=== PATIENT | female | born 1965 | race Caucasian/White ===

== ENCOUNTER 2023-02-01 05:55 | Day surgery (SDC) | payer BC ==
[~2023-02-01] VITALS: Ht 160 cm; Wt 65.9 kg
[~2023-02-01 05:55] MED LIST: LISINOPRIL10 MG PO
[2023-02-01] MEDS ORDERED: CHILDREN'S ASPI81 M1 PO (06:15)
--- NOTE | 2023-02-01 08:07 | NUR ---
02/01/23 0807 Laura Rushing 0803 PATIENT ARRIVES TO PACU AWAKE BUT DROWSY. REPOSTIONS SELF TO BACK. DENIES PAIN OR NAUSEA. RESP EVEN AND UNLABORED, ROOM AIR SATS >93%. DENIES NEEDS. PASSING GAS.
--- NOTE | 2023-02-01 11:01 | OR ---
[facility] [address], [place] [address] Signed DATE OF OPERATION: 02/01/2023 SURGEON: Dayne Willingham MD PREOPERATIVE DIAGNOSES: 1. Maternal grandfather with colon cancer. 2. Mother with colon cancer at age 60. 3. Personal history of hyperplastic colonic polyps at age 45 and age 50. 4. Minimal sigmoid diverticulosis. 5. Tortuous rectosigmoid junction and sigmoid colon. POSTOPERATIVE DIAGNOSES: 1. Minimal sigmoid diverticulosis. 2. Tortuous sigmoid colon and rectosigmoid junction. 3. A 5 mm sessile polyp at 55 cm in the left colon. 4. A 5 mm pedunculated polyp at 15 cm at the rectosigmoid junction. 5. A 3 mm polyp at 4 cm. 6. Minimal internal hemorrhoids. PROCEDURE: Colonoscopy with hot biopsy. ESTIMATED BLOOD LOSS: None. INDICATIONS: Dhara is a 57-year-old female, asked to see me for her third colonoscopy. We know her maternal grandfather had colon cancer. Her mother had colon cancer at age 60. Dhara came to us in 2010 at age of 45 and again in 2016 at age of 50. She has had multiple hyperplastic colonic polyps removed. She has minimal sigmoid diverticulosis. We know her rectosigmoid junction and the sigmoid colon are quite torturous. She took an enormous amount of Versed and fentanyl to complete her two colonoscopies. In fact, she took 12 mg of Versed and 250 mcg of fentanyl. It is very clear that she had pain and memory of the colonoscopy. We therefore asked that she undergo monitored anesthesia care with propofol infusion on this occasion that proved to be a tremendous improvement both for Dhara and for the technical advancement of the scope. In the office, I gave her a pamphlet on colonoscopy. We had reviewed the nature of the test. She understands there is risk including, but not limited to gas bloating, crampy abdominal pain, bleeding, perforation requiring surgery, and missed diagnosis. She had expressed understanding and wished to proceed. Electronically Signed By: DAYNE WILLINGHAM MD 02/01/23 1101 PATIENT NAME: DHARA JUAREZ OPERATIVE REPORT DATE OF : 65 REPORT #: [id number] PHYSICIAN: DAYNE WILLINGHAM MD PCP: DEBBY APONTE PA-C REPORT IS CONFIDENTIAL AND NOT TO BE RELEASED WITHOUT AUTHORIZATION [facility] [address] [place] [id number] Signed DESCRIPTION OF PROCEDURE: Dhara was taken into our endoscopy suite and placed in the left lateral decubitus position. She was given monitored anesthesia care with propofol infusion per our nurse margarine maker. A digital rectal exam was performed. This was unremarkable. There were no external hemorrhoids. She had good sphincter tone. There were no masses. The adult colonoscope was introduced and advanced under direct visualization of camera. We had to carefully navigate around the rectosigmoid junction and up through the sigmoid colon. It was a tremendous improvement with the help of the IV propofol. After that, the camera passed quite nicely up into the cecum itself. We did use some abdominal compression in order to advance the scope along with some additional propofol. As always, her prep was quite excellent. We could easily see the appendiceal orifice and the ileocecal valve. The scope was then slowly withdrawn. We took pictures throughout for photodocumentation. The above-mentioned polyps were easily removed with a hot biopsy forceps. We did see the diverticula in the sigmoid colon. They were moderate in size, few in number, and scattered about. Once in the rectum, the scope had been retroflexion. She has some very minimal internal hemorrhoid tissue. After this, the gas was suctioned out, colonoscope removed. Dhara tolerated the procedure much better on this occasion with the help of the propofol infusion. RECOMMENDATIONS: I will see Dhara back in my office in 7 to 14 days to review her results. I suspect she will be on the five year plan. She will always benefit from monitored anesthesia care with propofol infusion. Dayne Willingham MD ALB/MODL /[id number] cc: Dayne Willingham MD Patient Chart Debby Aponte PA-C Electronically Signed By: DAYNE WILLINGHAM MD 02/01/23 1101 PATIENT NAME: DHARA JUAREZ OPERATIVE REPORT DATE OF : 65 REPORT #: [id number] PHYSICIAN: DAYNE WILLINGHAM MD PCP: DEBBY APONTE PA-C REPORT IS CONFIDENTIAL AND NOT TO BE RELEASED WITHOUT AUTHORIZATION [address] [address] Signed Copies: DAYNE WILLINGHAM MD, CHLOE K PA-C ~ Electronically Signed By: DAYNE WILLINGHAM MD 02/01/23 1101 PATIENT NAME: DHARA JUAREZ OPERATIVE REPORT DATE OF : 65 REPORT #: [id number] PHYSICIAN: DAYNE WILLINGHAM MD PCP: DEBBY APONTE PA-C REPORT IS CONFIDENTIAL AND NOT TO BE RELEASED WITHOUT AUTHORIZATION
--- NOTE | 2023-02-04 15:14 | PATH ---
[facility] [address] [facility] [place], [place] [address] Signed SPECIMEN(S): A DESCENDING/LEFT COLON POLYP AT 55 CM SPECIMEN(S): B RECTOSIGMOID POLYP AT 15 CM SPECIMEN(S): C COLON POLYP AT 4 CM SPECIMEN SOURCE: A. DESCENDING/LEFT COLON POLYP AT 55 CM B. RECTOSIGMOID POLYP AT 15 CM C. COLON POLYP AT 4 CM CLINICAL HISTORY: Pre: History of polyps and diverticulosis; family history of colon cancer (mother). Post: Diverticulosis, internal hemorrhoids, polyps. FINAL PATHOLOGIC DIAGNOSIS: A. Descending / left colon polyp at 55 cm: - Hyperplastic polyp (one fragment). B. Rectosigmoid polyp at 15 cm: - Hyperplastic polyp (two fragments). C. Colon polyp at 4 cm: - Hyperplastic polyp (one fragment). JVR:[facility]:C2NR MICROSCOPIC EXAMINATION: Histologic sections of all submitted blocks are examined by light microscopy. These findings, together with the gross examination, support the pathologic diagnosis. GROSS DESCRIPTION: A. The specimen, labeled and designated "Alanna, #1" and designated on the requisition "descending/left colon polypectomy at 55 cm," is received in formalin and consists of one cruz soft tissue fragment, 0.2 cm. Entirely submitted in (A1). B. The specimen, labeled and designated "Alanna, 2" and designated on the requisition "rectosigmoid polypectomy at 15 cm," is received in formalin and consists of two cruz soft tissue fragments, ranging from 0.3-0.4 cm. Entirely submitted in (B1). C. The specimen, labeled and designated "Alanna, 3" and designated on the requisition "colon polypectomy at 4 cm," is received in formalin and consists of one cruz soft tissue fragment, 0.3 cm. Entirely submitted in (C1). AC (under the direct supervision of a pathologist) PATIENT NAME: DONTRELL JUAREZ PATHOLOGY DATE OF : 65 REPORT #: [id number] PHYSICIAN: [facility] PCP: DEONDRE SARABIA PA-C REPORT IS CONFIDENTIAL AND NOT TO BE RELEASED WITHOUT AUTHORIZATION [facility] [address], [place] [address] Signed The Gross Description was prepared using a voice recognition system. The report was reviewed for accuracy; however, sound-alike word errors, addition and/or deletions may occur. If there is any question about this report, please contact Client Services. PERFORMING LABORATORY: The technical component was performed by [facility], [address] [place] [id number] (CLIA# [id number]). Professional interpretation was performed by [facility] - [facility][1], [address] [place] [id number] (CLIA#: [id number]). Diagnostician: Bryn Ivy MD Pathologist Electronically Signed 02/04/2023 Copies: ~ PATIENT NAME: DONTRELL JUAREZ PATHOLOGY DATE OF : 65 REPORT #: [id number] PHYSICIAN: AIDEE CANTOR PCP: DEONDRE SARABIA PA-C REPORT IS CONFIDENTIAL AND NOT TO BE RELEASED WITHOUT AUTHORIZATION
== END 2023-02-01 08:30 | disposition home or self-care (01) ==
LOC: DS 05:55 → OPS 05:55 → DS 09:00 → OPS 09:00
PROVIDERS: ATTEND Colon & Rectal Surgery
PROC: 0DBM8ZZ Excision of Descending Colon, Via Natural or Artificial Opening Endoscopic (ICD-10-PCS; principal; 2023-02-01 07:30)
DX: K63.5 Polyp of colon (principal); K57.30 Diverticulosis of large intestine without perforation or abscess without bleeding; Z80.0 Family history of malignant neoplasm of digestive organs; Z86.010 Personal history of colon polyps; I10 Essential (primary) hypertension; Q43.8 Other specified congenital malformations of intestine; E78.5 Hyperlipidemia, unspecified
CPT/HCPCS: J2370; J2704; J7121